=== PATIENT | female | born 1980 | race African-American/Black ===

== ENCOUNTER 2016-09-08 15:03 | Emergency (ER) | payer OTHER ==
[2016-09-08 15:12] VITALS: BP 109/79; PULSE 66; TEMP 97.7; BMI 23.5
--- NOTE | 2016-09-08 15:23 | PDOC ---
History of Present Illness - History of Present Illness Initial Comments: 09/08/16 15:49 The patient is a 36 year old female, A3, with a significant past medical history of bacterial vaginosis, who presents to the emergency department with clear malodorous discharge since late last night. She reports experiencing this vaginal discharge in the past, most recent episode in April 2016. She states she recalls not reacting well to the medication she was prescribed during her last experience. She denies vaginal itching or burning. She denies recent sexual activity. She denies abdominal pain, dysuria, frequency, urgency and hematuria. LMP: 08/31/15 (regular) She denies chest pain, shortness of breath, headache and dizziness. She denies fever, chills, nausea, vomit, diarrhea and constipation. Allergies: NKDA Past surgical history: myomectomy for fibroids Social history: Denies toxic habits <Radha Rogel - Last Filed: 09/08/16 16:00> - History of Present Illness Initial Comments: 09/08/16 16:29 09/08/16 16:29 <Joey Niño - Last Filed: 09/08/16 16:32> - General Chief Complaint: Vaginal Sxs Stated Complaint: VAGINAL DISCHARGE Time Seen by Provider: 09/08/16 15:07 Past History <Radha Rogel - Last Filed: 09/08/16 16:00> - Past Medical History Anemia: No Asthma: No Diabetes: No Disorders: Yes (vaginal discharge in July 2011) Hypercholesterolemia: Yes (NOT ON MEDS) Kidney Stones: Yes - Surgical History Abdominal Surgery: Yes (MYOMECTOMY IN 2015) - Reproductive History Cervical CA: No Dysfunctional Uterine Bleeding: No Ectopic : No Endometrial CA: No Polycystic Ovaries: No Therapeutic (s) & number: (2) Tubal Ligation: No - Immunization History Td Vaccination: No Immunization Up to Date: No - Psycho/Social/Smoking Cessation Hx Anxiety: No Suicidal Ideation: No Smoking Status: No Smoking History: Never smoked Have you smoked in the past 12 months: No Number of Cigarettes Smoked Daily: 0 Information on smoking cessation initiated: No Hx Alcohol Use: No Drug/Substance Use Hx: No Substance Use Type: None Hx Substance Use Treatment: No <Joey Niño - Last Filed: 09/08/16 16:32> - Past Medical History Allergies/Adverse Reactions: Allergies Allergy/AdvReac Type Severity Reaction Status Date / Time No Known Allergies Allergy Verified 09/08/16 15:07 Home Medications: Ambulatory Orders Metronidazole 0.75% Vag. Gel [Metrogel 0.75% *Vaginal Gel* -] 1 applic VG HS #1 tube 09/08/16 Abd/GI Specific PMHX - Complaint Specific PMHX Colitis: No Diverticulitis: No Gall Bladder Disease: No GERD: No Irritable Bowel Synd (IBS): No <Joey Niño - Last Filed: 09/08/16 16:32> Review of Systems - Review of Systems Able to Perform ROS?: Yes Comments:: 09/08/16 15:50 CONSTITUTIONAL: Absent: fever, no chills, no fatigue EYES: Absent: visual changes ENT: Absent: ear pain, no sore throat CARDIOVASCULAR: Absent: chest pain, no palpitations RESPIRATORY: Absent: cough, no SOB GI: (+) malodorous vaginal discharge. Absent: abdominal pain, no nausea, no vomiting , no constipation, no diarrhea GENITOURINARY: Absent: dysuria, no frequency, no hematuria MUSCULOSKELETAL: Absent: back pain, no arthralgia, no myalgia SKIN: Absent: rash NEURO: Absent: headache <Radha Rogel - Last Filed: 09/08/16 16:00> *Physical Exam - Vital Signs Last Vital Signs Temp Pulse Resp BP Pulse Ox 97.7 F 66 18 109/79 98 09/08/16 15:09 09/08/16 15:09 09/08/16 15:09 09/08/16 15:09 09/08/16 15:09 - Physical Exam Comments: 09/08/16 15:51 GENERAL: Well-appearing, well-nourished. No apparent distress. HEENT: Normocephalic, atraumatic. PERRL, EOM intact. CARDIOVASCULAR: Normal S1, S2. Regular rate and rhythm. PULMONARY: Clear to auscultation bilaterally. ABDOMEN: Soft, non-distended, non-tender. EXTREMITIES: Normal ROM in all four extremities. No gross deformities. SKIN: Warm, dry. No rash NEUROLOGICAL: No focal neurological deficits. <Radha Rogel - Last Filed: 09/08/16 16:00> - Vital Signs Last Vital Signs Temp Pulse Resp BP Pulse Ox 97.7 F 66 18 109/79 98 09/08/16 15:09 09/08/16 15:09 09/08/16 15:09 09/08/16 15:09 09/08/16 15:09 <Joey Niño - Last Filed: 09/08/16 16:32> Medical Decision Making - Medical Decision Making 09/08/16 15:57 Patient with recurrent clear, watery, vaginal discharge without dysuria, itching , irritation, or rash/lesions. She denies any abdominal pain, pelvic pain, back pain, nausea, vomiting, or diarrhea. She denies any sexual intercourse for 6 months. She has had bacterial vaginosis treated with Flagyl in the past. test and urinalysis were performed. Treatment for bacterial vaginosis was prescribed and referral to PUMP TECHNICIAN for further monitoring and treatment was initiated. Patient fully ambulatory and in no pain or other distress upon discharge to follow-up as directed. 09/08/16 16:29 Urinalysis and test are negative. 09/08/16 16:29 <Joey Niño - Last Filed: 09/08/16 16:32> *DC/Admit/Observation/Transfer - Attestations Scribe Attestion: 09/08/16 15:51 Documentation prepared by Radha Rogel, acting as medical receptionist assistant for Joey Quiles MD <Radha Rogel - Last Filed: 09/08/16 16:00> - Discharge Dispostion Admit: No <Joey Niño - Last Filed: 09/08/16 16:32> Diagnosis at time of Disposition: Bacterial vaginosis - Discharge Dispostion Disposition: HOME Condition at time of disposition: Stable - Prescriptions Prescriptions: Metronidazole 0.75% Vag. Gel [Metrogel 0.75% *Vaginal Gel* -] 1 applic VG HS #1 tube - Patient Instructions Printed Discharge Instructions: DI for Bacterial Vaginosis Additional Instructions: See PUMP TECHNICIAN for follow-up and further treatment if no improvement.
[2016-09-08 16:21] LABS: URINE APPEARANCE Clear; URINE BILIRUBIN Negative (NEGATIVE); URINE BLOOD Negative (NEGATIVE); URINE GLUCOSE (UA) Negative (NEGATIVE); URINE KETONE Negative (NEGATIVE); URINE LEUK ESTERASE Negative (NEGATIVE); URINE NITRITE Negative (NEGATIVE); URINE PROTEIN Negative (NEGATIVE); URINE UROBILINOGEN 0.2 E.U/dl (0.2-1.0)
[2016-09-08 16:22] LABS: URINE COLOR YELLOW
== END 2016-09-08 16:55 | disposition home or self-care (01) ==
LOC: FER 15:03
DX: N76.0 Acute vaginitis (principal); Z87.442 Personal history of urinary calculi
CPT/HCPCS: 81003; 84703; 99282-25

== ENCOUNTER 2016-11-02 22:20 | Emergency (ER) | payer OTHER ==
--- NOTE | 2016-11-02 22:25 | PDOC ---
History of Present Illness - General Stated Complaint: VAGINAL DISCHARGE Time Seen by Provider: 11/02/16 22:23 History Source: Patient Exam Limitations: No Limitations - History of Present Illness Initial Comments: 36 yo F history recurrent yeast infections presents with vaginal discharge, irritation, itching. She states that she suspected a yeast infection, but after taking monistat and diflucan, it did not improve. She states that typically it does not resolve with diflucan. She has had recurrent infections since she had a myomectomy in April of last year. Discharge is white, thick, cottage cheese -like. She has had the same sexual partner for long-term, they were both tested for STIs last month, results were all negative. Modifying Factors: improves with: movement Past History - Past Medical History Allergies/Adverse Reactions: Allergies Allergy/AdvReac Type Severity Reaction Status Date / Time No Known Allergies Allergy Verified 11/02/16 22:35 Home Medications: Ambulatory Orders Terconazole 80 mg VG HS #3 supp.vag 11/02/16 Anemia: No Asthma: No Diabetes: No Disorders: Yes (vaginal discharge in July 2011) Hypercholesterolemia: Yes (NOT ON MEDS) Kidney Stones: Yes - Surgical History Abdominal Surgery: Yes (MYOMECTOMY IN 2015) - Reproductive History Cervical CA: No Dysfunctional Uterine Bleeding: No Ectopic : No Endometrial CA: No Polycystic Ovaries: No Therapeutic (s) & number: (2) Tubal Ligation: No - Immunization History Td Vaccination: No Immunization Up to Date: No - Psycho/Social/Smoking Cessation Hx Anxiety: No Suicidal Ideation: No Smoking Status: No Smoking History: Never smoked Have you smoked in the past 12 months: No Number of Cigarettes Smoked Daily: 0 Hx Alcohol Use: No Drug/Substance Use Hx: No Substance Use Type: None Hx Substance Use Treatment: No Review of Systems - Review of Systems Able to Perform ROS?: Yes Comments:: GENERAL/CONSTITUTIONAL: No fever or chills. No weakness. HEAD, EYES, EARS, NOSE AND THROAT: No change in vision. No ear pain or discharge. No sore throat. CARDIOVASCULAR: No chest pain or shortness of breath. RESPIRATORY: No cough, wheezing, or hemoptysis. GASTROINTESTINAL: No nausea, vomiting, diarrhea or constipation. GENITOURINARY: No dysuria, frequency, or change in urination. +Vaginal discharge. MUSCULOSKELETAL: No joint or muscle swelling or pain. No neck or back pain. SKIN: No rash NEUROLOGIC: No headache, vertigo, loss of consciousness, or change in strength/ sensation. ENDOCRINE: No increased thirst. No abnormal weight change. HEMATOLOGIC/LYMPHATIC: No anemia, easy bleeding, or history of blood clots. ALLERGIC/IMMUNOLOGIC: No hives or skin allergy. *Physical Exam - Physical Exam Comments: GENERAL: Awake, alert, and fully oriented, in no acute distress HEAD: No signs of trauma EYES: PERRLA, EOMI, sclera anicteric, conjunctiva clear ENT: Auricles normal inspection, hearing grossly normal, nares patent, oropharynx clear without exudates. Moist mucosa NECK: Normal ROM, supple, no lymphadenopathy, JVD, or masses LUNGS: Breath sounds equal, clear to auscultation bilaterally. No wheezes, and no crackles HEART: Regular rate and rhythm, normal S1 and S2, no murmurs, rubs or gallops ABDOMEN: Soft, nontender, normoactive bowel sounds. No guarding, no rebound. No masses EXTREMITIES: Normal range of motion, no edema. No clubbing or cyanosis. No cords, erythema, or tenderness NEUROLOGICAL: Cranial nerves II through XII grossly intact. Normal speech, normal gait SKIN: Warm, Dry, normal turgor, no rashes or lesions noted. : No external lesions. +Moderate white cottage cheese-like discharge. No adnexal or uterine tenderness. Medical Decision Making - Medical Decision Making Pt with history of many infections in the past, and now with copious discharge despite outpatient treatment. Will treat with terconazole, as this may either be a different organism or a resistant one. F/u with rn float this week. *DC/Admit/Observation/Transfer Diagnosis at time of Disposition: Candidiasis of female genitalia - Discharge Dispostion Disposition: HOME Condition at time of disposition: Stable Admit: No - Prescriptions Prescriptions: Terconazole 80 mg VG HS #3 supp.vag - Patient Instructions Printed Discharge Instructions: DI for Vaginal Yeast Infection
[2016-11-02 22:39] VITALS: BP 110/76; PULSE 67; TEMP 98.4; BMI 24.3
[2016-11-02 22:50] LABS: PH,URINE 5.5 (4.5-8); URINE APPEARANCE Clear; URINE BILIRUBIN Negative (NEGATIVE); URINE GLUCOSE (UA) Negative (NEGATIVE); URINE KETONE Negative (NEGATIVE); URINE LEUK ESTERASE Trace (NEGATIVE); URINE NITRITE Negative (NEGATIVE); URINE PROTEIN Negative (NEGATIVE); URINE UROBILINOGEN 0.2 E.U/dl (0.2-1.0)
[2016-11-02 23:38] LABS: URINE BLOOD TRACE (NEGATIVE); URINE COLOR YELLOW
[2016-11-03 00:45] LABS: CALCIUM OXALATE CRYSTALS MODERATE /hpf (NONE SEEN); URINE BACTERIA RARE /hpf (NEGATIVE); URINE RBC 0-3 /hpf (0-3)
== END 2016-11-02 22:57 | disposition home or self-care (01) ==
LOC: FER 22:20
DX: B37.3 Candidiasis of vulva and vagina (principal); Z87.442 Personal history of urinary calculi
CPT/HCPCS: 36415; 81003; 81015; 84703; 87491; 87591; 99281-25

== ENCOUNTER 2016-11-06 16:42 | Emergency (ER) | payer OTHER ==
[2016-11-06 16:47] VITALS: BMI 24.2
[2016-11-06 16:52] VITALS: BP 103/84; PULSE 68; TEMP 99.1
--- NOTE | 2016-11-06 18:36 | PDOC ---
History of Present Illness - General History Source: Patient Exam Limitations: No Limitations - History of Present Illness Initial Comments: 11/06/16 18:39 The patient is a 36 year old female (LMP 10/26/16), with a significant past medical history of recurrent yeast infections and a myomectomy (04/2016), who presents to the emergency department with complains of yellow vaginal discharge. The patient was present in the ED on 11/02/2016 with vaginal discharge, itching and irritation. At first she believed it was a yeast infection but after taking monistat and diflucan her symptoms did not improve. The patient states that she has been getting recurrent yeast infections since her myomectomy in April 2016. Her discharge upon her last visit was white, thick, and cottage cheese like. Upon presentation to the ED today she states that it is now yellow. She was given teranozole 80 mg. She denies any STIs. The patient does report that on night she had a fever and chills. She denies chest pain, shortness of breath, headache and dizziness. She denies nausea, vomit, diarrhea and constipation. Medications: teraonozole 80mg. Allergies:None Past surgical history: Myomectomy in April 2016. Social history: Never smoked <Tg Mcdonald - Last Filed: 11/06/16 18:38> <Naeem Jackson - Last Filed: 11/06/16 19:48> - General Chief Complaint: Vaginal Sxs Stated Complaint: YELLOW VAGINAL D/C Time Seen by Provider: 11/06/16 16:57 Past History <Tg Mcdonald - Last Filed: 11/06/16 18:38> - Past Medical History Anemia: No Asthma: No Diabetes: No Disorders: Yes (vaginal discharge in July 2011) Hypercholesterolemia: Yes (NOT ON MEDS) Kidney Stones: Yes - Surgical History Abdominal Surgery: Yes (MYOMECTOMY IN 2015) - Reproductive History Cervical CA: No Dysfunctional Uterine Bleeding: No Ectopic : No Endometrial CA: No Polycystic Ovaries: No Therapeutic (s) & number: (2) Tubal Ligation: No - Immunization History Td Vaccination: No Immunization Up to Date: No - Psycho/Social/Smoking Cessation Hx Anxiety: No Suicidal Ideation: No Smoking Status: No Smoking History: Never smoked Have you smoked in the past 12 months: No Number of Cigarettes Smoked Daily: 0 Hx Alcohol Use: No Drug/Substance Use Hx: No Substance Use Type: None Hx Substance Use Treatment: No <Naeem Jackson - Last Filed: 11/06/16 19:48> - Past Medical History Allergies/Adverse Reactions: Allergies Allergy/AdvReac Type Severity Reaction Status Date / Time No Known Allergies Allergy Verified 11/02/16 22:35 Home Medications: Ambulatory Orders Miconazole Nitrate [Miconazole 7] 45 gm VG DAILY #1 cream.appl 11/06/16 Review of Systems - Review of Systems Able to Perform ROS?: Yes Comments:: 11/06/16 18:39 CONSTITUTIONAL: Absent: Fever, Chills, Diaphoresis, Generalized Weakness, Malaise, Loss of Appetite HEENT: Absent: Rhinorrhea, Nasal Congestion, Throat Pain, Throat Swelling, Difficulty Swallowing, Mouth Swelling, Ear Pain, Eye Pain, Visual Changes CARDIOVASCULAR: Absent: Chest Pain, Syncope, Palpitations, Irregular Heart Rate, Lightheadedness , Peripheral Edema MUSCULOSKELETAL: Absent: Myalgia, Arthralgia, Joint Swelling, Back pain, Neck Pain SKIN: Absent: Rash, Itching, Pallor VAGINAL: +Yellow discharge <ChinoForrest monsalveie - Last Filed: 11/06/16 18:38> *Physical Exam - Vital Signs Last Vital Signs Temp Pulse Resp BP Pulse Ox 99.1 F 68 18 103/84 100 11/06/16 16:43 11/06/16 16:43 11/06/16 16:43 11/06/16 16:43 11/06/16 16:43 - Physical Exam Comments: 11/06/16 18:39 GENERAL: The patient is awake, alert, and fully oriented, in no acute distress. HEAD: Normal with no signs of trauma. EYES: Pupils equal, round and reactive to light, extraocular movements intact, sclera anicteric, conjunctiva clear. EXTREMITIES: Normal range of motion, no edema. Sensation intact. Circulation intact. NEUROLOGICAL: Normal speech, normal gait. PSYCH: Normal mood, normal affect. SKIN: Warm, Dry, normal turgor, no rashes or lesions noted. PELVIC EXAM: External genitalia: Normal without lesions. Vagina: +She has cottage cheese discharge consistent with damon. no blood. Cervix: Long and closed with no cervical motion tenderness. Uterus: Nontender, normal in size. Adnexa: Nontender, without masses <Tg Mcdonald - Last Filed: 11/06/16 18:38> - Vital Signs Last Vital Signs Temp Pulse Resp BP Pulse Ox 99.1 F 68 18 103/84 100 11/06/16 16:43 11/06/16 16:43 11/06/16 16:43 11/06/16 16:43 11/06/16 16:43 - Physical Exam Comments: 11/06/16 19:11 Abdomen is soft and nontender. No abdominal masses. No guarding or rebound tenderness. <Naeem Jackson - Last Filed: 11/06/16 19:48> Medical Decision Making - Medical Decision Making 11/06/16 19:11 Patient with chronic vaginitis, recurrent yeast infections, has failed fluconazole once weekly for 10 weeks. Has failed other antifungal agents. Currently on exam has recurrent damon vaginitis with typical discharge. <Naeem Jackson - Last Filed: 11/06/16 19:48> *DC/Admit/Observation/Transfer - Attestations Scribe Attestion: 11/06/16 18:40 Documentation prepared by KUSHAL Louise, acting as medical surgical tech for Naeem Jackson MD. <Tg Mcdonald - Last Filed: 11/06/16 18:38> - Discharge Dispostion Admit: No <Naeem Jackson - Last Filed: 11/06/16 19:48> Diagnosis at time of Disposition: Damon vaginitis - Discharge Dispostion Condition at time of disposition: Stable - Prescriptions Prescriptions: Miconazole Nitrate [Miconazole 7] 45 gm VG DAILY #1 cream.appl - Patient Instructions Printed Discharge Instructions: DI for Vaginal Yeast Infection Additional Instructions: You were evaluated today for a vaginal yeast infection. Use miconazole intravaginal 100 mg daily for 7 days. The prescription has been sent to your pharmacy. Follow-up with your lace finisher. Given that your yeast infection has been recurrent so many times, it is recommended that you discuss with your lace finisher culture and sensitivity of the yeast infection. This may allow more targeted therapy that will be more effective. Return to the emergency department for any severe or progressive symptoms.
[2016-11-06 18:57] LABS: URINE APPEARANCE Clear; URINE BILIRUBIN Negative (NEGATIVE); URINE BLOOD Negative (NEGATIVE); URINE GLUCOSE (UA) Negative (NEGATIVE); URINE KETONE Negative (NEGATIVE); URINE LEUK ESTERASE Negative (NEGATIVE); URINE NITRITE Negative (NEGATIVE); URINE PROTEIN Negative (NEGATIVE); URINE UROBILINOGEN 0.2 E.U/dl (0.2-1.0)
[2016-11-06 19:16] LABS: URINE COLOR YELLOW
== END 2016-11-06 19:54 | disposition home or self-care (01) ==
LOC: FER 16:42
DX: B37.3 Candidiasis of vulva and vagina (principal)
CPT/HCPCS: 36415; 81003; 84703; 87086; 87491; 87591; 99283-25

== ENCOUNTER 2017-05-22 12:20 | Emergency (ER) | payer OTHER ==
[2017-05-22 12:28] VITALS: BP 106/63; PULSE 84; TEMP 98.1; BMI 23.5
--- NOTE | 2017-05-22 12:32 | PDOC ---
History of Present Illness - General Chief Complaint: Vaginal Sxs Stated Complaint: FOUL SMELLING, CLOUDY URINE, VAGINAL DISCHARGE Time Seen by Provider: 05/22/17 12:26 - History of Present Illness Initial Comments: 05/22/17 12:59 36yo female presents ambulatory from home c/o vaginal discharge, itching, and foul smelling urine. States she was treated with metrogel for BV prior to May 13. Developed her menstrual cycle on the , then developed a yeast infection for which she used monostat 3 day and took a diflucan. States april of 2016 she underwent a myomectomy with her BOARDING SPECIALIST in [place]. States since then she has had recurrent yeast infections. States in December her PROFESSOR OF FAMILY MEDICINE told her to take diflucan qsunday of every week. Pt also c/o foul smelling urine and dysuria since tuesday. No abd pain. No f/v. No n/v/d. No cp/sob. No harrell. Nontoxic in appearance. Hx of chlamydia when she was 20. Currently with 1 sexual partner in a monogomous relationship. Was tested for HIV/STDs in december and was negative. Unprotected intercourse May 03- states attempting to get , but had menses on May 13. PMhx: recurrent vulvovaginitis, BV Pshx: myomectomy Allergies: NKDA 05/22/17 13:03 Past History - Past Medical History Allergies/Adverse Reactions: Allergies Allergy/AdvReac Type Severity Reaction Status Date / Time No Known Allergies Allergy Verified 05/22/17 12:23 Home Medications: Ambulatory Orders Fluconazole [Diflucan] 150 mg PO ONCE #1 tablet 05/22/17 Anemia: No Asthma: No COPD: No Diabetes: No Disorders: Yes (vaginal discharge in July 2011) Hypercholesterolemia: Yes (NOT ON MEDS) Kidney Stones: Yes Other medical history: H/O RECURRENT URINARY, VAGINAL SX - Surgical History Abdominal Surgery: Yes (MYOMECTOMY IN 2015) - Reproductive History Cervical CA: No Dysfunctional Uterine Bleeding: No Ectopic : No Endometrial CA: No Polycystic Ovaries: No Therapeutic (s) & number: (2) Tubal Ligation: No - Immunization History Td Vaccination: No Immunization Up to Date: No - Suicide/Smoking/Psychosocial Hx Smoking Status: No Smoking History: Never smoked Have you smoked in the past 12 months: No Number of Cigarettes Smoked Daily: 0 Hx Alcohol Use: No Drug/Substance Use Hx: No Substance Use Type: None Hx Substance Use Treatment: No Review of Systems - Review of Systems Able to Perform ROS?: Yes Is the patient limited Hebrew proficient: No Constitutional: No: Chills, Fever HEENTM: No: Nose Congestion, Throat Pain Respiratory: No: Cough, Shortness of Breath, Wheezing Cardiac (ROS): No: Chest Pain, Irregular Heart Rate ABD/GI: No: Abdominal Distended, Diarrhea, Nausea, Vomiting : Yes: Burning, Dysuria, Discharge Musculoskeletal: No: Back Pain Integumentary: No: Rash Neurological: No: Headache, Numbness, Paresthesia All Other Systems: Reviewed and Negative *Physical Exam - Vital Signs Last Vital Signs Temp Pulse Resp BP Pulse Ox 98.1 F 84 187 H 106/63 99 05/22/17 12:20 05/22/17 12:20 05/22/17 12:20 05/22/17 12:20 05/22/17 12:20 - Physical Exam General Appearance: Yes: Nourished, Appropriately Dressed. No: Apparent Distress HEENT: positive: EOMI, Normal Voice Neck: positive: Supple Respiratory/Chest: positive: Lungs Clear, Normal Breath Sounds Cardiovascular: positive: Regular Rhythm, Regular Rate Female Pelvic Exam: positive: normal external exam, cervical os closed, normal adnexa, discharge, other (white thick cheesy discharge - copiuous amount ). negative: CMT, adnexal tenderness Gastrointestinal/Abdominal: positive: Flat, Soft. negative: Tender, Guarding, Rebound Musculoskeletal: positive: Normal Inspection. negative: CVA Tenderness Extremity: positive: Normal Capillary Refill, Normal Inspection, Normal Range of Motion Integumentary: positive: Normal Color, Dry, Warm Neurologic: positive: floor surfacer II-XII NML intact, Fully Oriented, Alert, Motor Strength 5/5, Other (ambulatory with a steady gait) Medical Decision Making - Medical Decision Making 05/22/17 13:05 a/p: 36yo female with vaginal discharge and dysuria -will check GC/Chlamydia -discharge consistent with yeast infection -will check UA, UCG 05/22/17 13:46 urine preg negative recent menstrual cycle will give diflucan in ED and give another dose for repeat in 72 hours. Discussed need for follow up with enrollment management director next week Discussed urine results. no signs of infection pt understands gc/chl pending No CMT or adnexal ttp discharge consistent with yeast infection *DC/Admit/Observation/Transfer Diagnosis at time of Disposition: Candidiasis of female genitalia, Vaginal discharge - Discharge Dispostion Disposition: HOME Condition at time of disposition: Stable Admit: No - Prescriptions Prescriptions: Fluconazole [Diflucan] 150 mg PO ONCE #1 tablet - Referrals Referrals: Corbin Andrews MD [Staff Physician] - - Patient Instructions Printed Discharge Instructions: DI for Vaginal Yeast Infection Additional Instructions: Please take all meds as prescribed. Please return to the ED with any further complaints. You may repeat your diflucan dose in 72 hours (on 05/25/17) if your symptoms persist. Please make an appointment to follow up with your PMD and your PROFESSOR OF FAMILY MEDICINE. Your cultures are pending and you may call medical records to obtain your results in 3-4 days. - Post Discharge Activity
[2017-05-22 13:03] LABS: PH,URINE 8.5 (4.5-8); URINE APPEARANCE Clear; URINE BILIRUBIN Negative (NEGATIVE); URINE BLOOD Negative (NEGATIVE); URINE GLUCOSE (UA) Negative (NEGATIVE); URINE KETONE Negative (NEGATIVE); URINE LEUK ESTERASE Negative (NEGATIVE); URINE NITRITE Negative (NEGATIVE); URINE PROTEIN Negative (NEGATIVE); URINE UROBILINOGEN 0.2 (0.2-1.0)
[2017-05-22 13:06] LABS: URINE COLOR YELLOW
[2017-05-22] MEDS ORDERED: FLUCONAZOLE 50 MG TABLET PO ONE (13:46)
[2017-05-22] MEDS ORDERED: FLUCONAZOLE 150 MG TABLET PO ONE (13:53)
== END 2017-05-22 14:00 | disposition home or self-care (01) ==
LOC: FER 12:20
DX: B37.89 Other sites of candidiasis (principal); N89.8 Other specified noninflammatory disorders of vagina
CPT/HCPCS: 36415; 81003; 84703; 87491; 87591; 99283-25

== ENCOUNTER 2017-05-26 13:19 | Emergency (ER) | payer OTHER ==
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
[2017-05-26 13:26] VITALS: BP 144/76; PULSE 59; TEMP 98.2; BMI 23.5
[2017-05-26] MEDS ORDERED: IBUPROFEN 400 MG TABLET (FP) PO ONE ×2 (13:49→13:57)
== END 2017-05-26 15:30 | disposition home or self-care (01) ==
LOC: FER 13:19
DX: S06.0X0A Concussion without loss of consciousness, initial encounter (principal); V43.52XA Car driver injured in collision with other type car in traffic accident, initial encounter; Y93.89 Activity, other specified; Y92.410 Unspecified street and highway as the place of occurrence of the external cause
CPT/HCPCS: 70450-TC; 84703; 99281-25

== ENCOUNTER 2017-06-29 07:51 | Emergency (ER) | payer OTHER ==
[2017-06-29 07:59] VITALS: BP 112/68; PULSE 67; TEMP 98.4; BMI 23.8
--- NOTE | 2017-06-29 08:25 | PDOC ---
History of Present Illness - General Chief Complaint: Urinary Problem Stated Complaint: BURNING ON URINATION Time Seen by Provider: 06/29/17 08:15 - History of Present Illness Initial Comments: 06/29/17 08:22 37 F with no PMH presents to ER with 4 days of burning with urination. Pt denies F/C. Denies foul smelling urine. Denies vaginal discharge or bleeding. Denies flank pain. States that this pain is similar to when she has had chlamydia in the past. She has had UTIs before as well and believes this is different. Denies abdominal pain. Denies N/V/D. Pt is sexually active with 1 male partner. Does not use protection as she is trying to get . Had chlamydia once when she was 18. Past History - Past Medical History Allergies/Adverse Reactions: Allergies Allergy/AdvReac Type Severity Reaction Status Date / Time No Known Allergies Allergy Verified 06/29/17 07:55 Home Medications: Ambulatory Orders NK [No Known Home Medication] 06/29/17 Anemia: No Asthma: No COPD: No DVT: No Diabetes: No Disorders: Yes (vaginal discharge in July 2011) Hypercholesterolemia: Yes (NOT ON MEDS) Kidney Stones: Yes - Surgical History Abdominal Surgery: Yes (MYOMECTOMY IN 2016) - Reproductive History Cervical CA: No Dysfunctional Uterine Bleeding: No Ectopic : No Endometrial CA: No Polycystic Ovaries: No Therapeutic (s) & number: (2) Tubal Ligation: No - Immunization History Td Vaccination: No Immunization Up to Date: No - Suicide/Smoking/Psychosocial Hx Smoking Status: No Smoking History: Never smoked Have you smoked in the past 12 months: No Number of Cigarettes Smoked Daily: 0 Hx Alcohol Use: No Drug/Substance Use Hx: No Substance Use Type: None Hx Substance Use Treatment: No Review of Systems - Review of Systems Comments:: 06/29/17 08:24 "GENERAL/CONSTITUTIONAL: No fever or chills. No weakness. HEAD, EYES, EARS, NOSE AND THROAT: No change in vision. No ear pain or discharge. No sore throat. CARDIOVASCULAR: No chest pain or shortness of breath. RESPIRATORY: No cough, wheezing, or hemoptysis. GASTROINTESTINAL: No nausea, vomiting, diarrhea or constipation. GENITOURINARY: +dysuria MUSCULOSKELETAL: No joint or muscle swelling or pain. No neck or back pain. SKIN: No rash NEUROLOGIC: No headache, vertigo, loss of consciousness, or change in strength/ sensation. ENDOCRINE: No increased thirst. No abnormal weight change. HEMATOLOGIC/LYMPHATIC: No anemia, easy bleeding, or history of blood clots. ALLERGIC/IMMUNOLOGIC: No hives or skin allergy. " *Physical Exam - Vital Signs Last Vital Signs Temp Pulse Resp BP Pulse Ox 98.4 F 67 18 112/68 100 06/29/17 07:54 06/29/17 07:54 06/29/17 07:54 06/29/17 07:54 06/29/17 07:54 - Physical Exam Comments: 06/29/17 08:24 "GENERAL: Awake, alert, and fully oriented, in no acute distress HEAD: No signs of trauma EYES: PERRLA, EOMI, sclera anicteric, conjunctiva clear ENT: Auricles normal inspection, hearing grossly normal, nares patent, oropharynx clear without exudates. Moist mucosa NECK: Nontender, no stepoffs, Normal ROM, supple, no lymphadenopathy, JVD, or masses LUNGS: Breath sounds equal, clear to auscultation bilaterally. No wheezes, and no crackles HEART: Regular rate and rhythm, normal S1 and S2, no murmurs, rubs or gallops ABDOMEN: Soft, nontender, normoactive bowel sounds. No guarding, no rebound. No masses EXTREMITIES: Normal range of motion, no edema. No clubbing or cyanosis. No cords, erythema, or tenderness NEUROLOGICAL: Cranial nerves II through XII intact. 5/5 strength and sensation in all extremities, Normal speech, normal gait SKIN: Warm, Dry, normal turgor, no rashes or lesions noted. : No CMT, physiologic white discharge, no foul smelling or purulent discharge , no bleeding, no lesions noted Medical Decision Making - Medical Decision Making 06/29/17 08:25 37 F with dysuria. Possible UTI. No evidence of cervicitis or PID on exam but pt reports that it feels like when she had chlamydia previously, so will tx empirically. - UA, UCx, GC/CT - Ceftriaxone + azithro 06/29/17 09:30 UA negative. Pt empirically treated for GC/CT. Pt refused HIV test. Instructed to call back in 24 hours for results, as partner may need tx. I discussed the physical exam findings, ancillary test results and final diagnoses with the patient. I answered all of the patient's questions. The patient was satisfied with the care received and felt comfortable with the discharge plan and treatment plan. The patient agrees to follow up with the primary care physician within 24-72 hours. *DC/Admit/Observation/Transfer Diagnosis at time of Disposition: STI (sexually transmitted infection) - Discharge Dispostion Disposition: HOME Condition at time of disposition: Stable - Referrals - Patient Instructions Printed Discharge Instructions: Facts About Sexually Transmitted Infections Additional Instructions: Call back in 24 hours to get the results of your STD tests. You have already received treatment for it, but if your test is positive, your partner will need to be treated as well. If you experience worsening pain, fevers, vaginal discharge, or any other concerning symptoms, return to the ER immediately. Otherwise, follow up with your primary doctor as scheduled next week. - Post Discharge Activity - Attestations Physician Attestion: 06/29/17 09:33 I, Dr. Liu Bernal MD, attest that this document has been prepared under my direction and personally reviewed by me in its entirety. I further attest, that it accurately reflects all work, treatment, procedures and medical decision -making performed by me.
[2017-06-29] MEDS ORDERED: AZITHROMYCIN 1 GM PACKET PO ONE (08:37)
[2017-06-29] MEDS ORDERED: LIDOCAINE HCL 1%, 10 MG/ML (20ML VIAL) ONE (08:40)
[2017-06-29] MEDS ORDERED: AZITHROMYCIN 1 GM PACKET ONE (08:41)
[2017-06-29] MEDS ORDERED: cefTRIAXone SODIUM 1 GM VIAL ONE (08:41)
[2017-06-29] MEDS ORDERED: LIDOCAINE HCL 1%, 10 MG/ML (50 mL VIAL) SQ ONE (08:42)
[2017-06-29 09:09] LABS: URINE APPEARANCE Clear; URINE BILIRUBIN Negative (NEGATIVE); URINE BLOOD Negative (NEGATIVE); URINE GLUCOSE (UA) Negative (NEGATIVE); URINE KETONE Negative (NEGATIVE); URINE LEUK ESTERASE Negative (NEGATIVE); URINE NITRITE Negative (NEGATIVE); URINE PROTEIN Negative (NEGATIVE); URINE UROBILINOGEN 0.2 (0.2-1.0)
[2017-06-29 09:20] LABS: HCG,QUALITATIVE URINE NEGATIVE; URINE COLOR YELLOW
== END 2017-06-29 09:40 | disposition home or self-care (01) ==
LOC: FER 07:51
DX: A63.8 Other specified predominantly sexually transmitted diseases (principal)
CPT/HCPCS: 36415; 81003; 84703; 87086; 87491; 87591; 96372; 99282-25

== ENCOUNTER 2018-05-27 21:01 | Emergency (ER) | payer SELFPAY ==
[2018-05-27 21:24] VITALS: BP 128/85; PULSE 52; TEMP 98.5; BMI 23.8
--- NOTE | 2018-05-27 21:39 | PDOC ---
History of Present Illness - General History Source: Patient Exam Limitations: No Limitations - History of Present Illness Initial Comments: 05/27/18 21:51 The patient is a 37 year old female, with a significant PMH of genital herpes who presents to the emergency department with right shoulder burning sensation and small papule on the left arm, right arm and back for the past two weeks. Two weeks ago, the patient was at physical therapy where they applied some muscle relaxing cream to her right shoulder, which she believes may be related to the burning sensation. Patient states she went to see a strapper for this, and was prescribed topical ointments which she did not use. Instead she used a steroid cream she had a home with some relief of the burning sensation. Patient has also been applying aveeno cream after her shower to alleviate the burning sensation. She has a scheduled appointment with her strapper on 05/31. The patient denies chest pain, shortness of breath, headache and dizziness. Denies fever, chills, nausea, vomit, diarrhea and constipation. Denies dysuria, frequency, urgency and hematuria. Allergies: NKA Past surgical history: None reported. Social history: No reported alcohol, drug or cigarette use. <Rayna Monzon - Last Filed: 05/27/18 21:51> <Linda Kinsey - Last Filed: 05/31/18 01:40> - General Chief Complaint: Rash Stated Complaint: RASH Time Seen by Provider: 05/27/18 21:09 Past History <Rayna Monzon - Last Filed: 05/27/18 21:51> - Past Medical History Anemia: No Asthma: No COPD: No DVT: No Diabetes: No Disorders: Yes (vaginal discharge in July 2011) Hypercholesterolemia: Yes (NOT ON MEDS) Kidney Stones: Yes - Surgical History Abdominal Surgery: Yes (MYOMECTOMY IN 2016) - Reproductive History Cervical CA: No Dysfunctional Uterine Bleeding: No Ectopic : No Endometrial CA: No Polycystic Ovaries: No Therapeutic (s) & number: (2) Tubal Ligation: No - Immunization History Td Vaccination: No Immunization Up to Date: No - Suicide/Smoking/Psychosocial Hx Smoking Status: No Smoking History: Never smoked Have you smoked in the past 12 months: No Number of Cigarettes Smoked Daily: 0 Hx Alcohol Use: No Drug/Substance Use Hx: No Substance Use Type: None Hx Substance Use Treatment: No <TioLinda - Last Filed: 05/31/18 01:40> - Past Medical History Allergies/Adverse Reactions: Allergies Allergy/AdvReac Type Severity Reaction Status Date / Time No Known Allergies Allergy Verified 06/29/17 07:55 Home Medications: Ambulatory Orders Halobetasol Prop 0.05% Tp Crm [Ultravate (Nf) -] 1 gm TP BID #1 tube 05/27/18 Valacyclovir HCl [Valtrex] 500 mg PO DAILY #20 tablet 05/27/18 Review of Systems - Review of Systems Able to Perform ROS?: Yes Comments:: 05/27/18 21:57 ADULT ROS GENERAL/CONSTITUTIONAL: No fever or chills. No weakness. HEAD, EYES, EARS, NOSE AND THROAT: No change in vision. No ear pain or discharge. No sore throat. CARDIOVASCULAR: No chest pain or shortness of breath. RESPIRATORY: No cough, wheezing, or hemoptysis. GASTROINTESTINAL: No nausea, vomiting, diarrhea or constipation. GENITOURINARY: No dysuria, frequency, or change in urination. MUSCULOSKELETAL: No joint or muscle swelling or pain. No neck or back pain. SKIN: (+) Burning sensation to the right shoulder. (+) Small papules to the right arm, left arm, and back. NEUROLOGIC: No headache, vertigo, loss of consciousness, or change in strength/ sensation. ENDOCRINE: No increased thirst. No abnormal weight change. HEMATOLOGIC/LYMPHATIC: No anemia, easy bleeding, or history of blood clots. ALLERGIC/IMMUNOLOGIC: No hives or skin allergy. <Rayna Monzon - Last Filed: 05/27/18 21:51> *Physical Exam - Vital Signs Last Vital Signs Temp Pulse Resp BP Pulse Ox 98.5 F 52 L 16 128/85 100 05/27/18 21:02 05/27/18 21:02 05/27/18 21:02 05/27/18 21:02 05/27/18 21:02 - Physical Exam Comments: 05/27/18 21:56 ADULT EXAM GENERAL: Awake, alert, and fully oriented, in no acute distress HEAD: No signs of trauma EYES: PERRLA, EOMI, sclera anicteric, conjunctiva clear ENT: Auricles normal inspection, hearing grossly normal, nares patent, oropharynx clear without exudates. Moist mucosa NECK: Normal ROM, supple, no lymphadenopathy, JVD, or masses LUNGS: Breath sounds equal, clear to auscultation bilaterally. No wheezes, and no crackles HEART: Regular rate and rhythm, normal S1 and S2, no murmurs, rubs or gallops ABDOMEN: Soft, nontender, normoactive bowel sounds. No guarding, no rebound. No masses EXTREMITIES: Normal range of motion, no edema. No clubbing or cyanosis. No cords, erythema, or tenderness NEUROLOGICAL: Cranial nerves II through XII grossly intact. Normal speech, normal gait SKIN: Warm, Dry, normal turgor (+) 3mm mildly erythematous papule on the right arm, left arm, and midline lower lumber back region <Rayna Monzon - Last Filed: 05/27/18 21:51> - Vital Signs Last Vital Signs Temp Pulse Resp BP Pulse Ox 98.5 F 52 L 16 128/85 100 05/27/18 21:02 05/27/18 21:02 05/27/18 21:02 05/27/18 21:02 05/27/18 21:02 <Linda Kinsey - Last Filed: 05/31/18 01:40> Moderate Sedation - Procedure Monitoring Vital Signs: Procedure Monitoring Vital Signs Temperature 98.5 F 05/27/18 21:02 Pulse Rate 52 L 05/27/18 21:02 Respiratory Rate 16 05/27/18 21:02 Blood Pressure 128/85 05/27/18 21:02 O2 Sat by Pulse Oximetry (%) 100 05/27/18 21:02 <Rayna Monzon - Last Filed: 05/27/18 21:51> - Procedure Monitoring Vital Signs: Procedure Monitoring Vital Signs Temperature 98.5 F 05/27/18 21:02 Pulse Rate 52 L 05/27/18 21:02 Respiratory Rate 16 05/27/18 21:02 Blood Pressure 128/85 05/27/18 21:02 O2 Sat by Pulse Oximetry (%) 100 05/27/18 21:02 <Linda Kinsey - Last Filed: 05/31/18 01:40> Progress Note - Progress Note Progress Note: Documentation has been prepared under my direction and personally reviewed by me in its entirety. I attest that this documented accurately reflects all work, treatment, procedures and medical decision making performed by me. <Linda Kinsey - Last Filed: 05/31/18 01:40> Medical Decision Making - Medical Decision Making As noted above, this 37-year-old woman presents with 2 areas of skin abnormalities: She has burning sensation in the area of her right shoulder and she is concerned about a few small papules on her forearms. Exam of the area of burning sensation on her shoulder shows no evidence of skin abnormality. The papules on her forearms appear to be insect bites but patient is concerned that they may be an outbreak of herpes simplex. Patient states that halobetasol cream has been helpful in decreasing the burning sensation on the area of her right shoulder. Prescription for this cream was sent to her pharmacy. The patient has follow-up with her strapper on 05/31/18. The patient was reassured regarding the small papules on her forearms. Since patient has history of genital herpes simplex, and she is concerned regarding the recurrence, she asked for a renewal of Valtrex that she has taken for suppression of the herpes in the past. The renewal prescription for Valtrex was provided for the patient. <Linda Kinsey - Last Filed: 05/31/18 01:40> *DC/Admit/Observation/Transfer - Attestations Scribe Attestion: 05/27/18 21:58 Documentation prepared by Rayna Monzno, acting as medical superintendent for Linda Kinsey MD. <Rayna Monzon - Last Filed: 05/27/18 21:51> <Linda Kinsey - Last Filed: 05/31/18 01:40> Diagnosis at time of Disposition: Rash - Discharge Dispostion Disposition: HOME Condition at time of disposition: Stable - Prescriptions Prescriptions: Halobetasol Prop 0.05% Tp Crm [Ultravate (Nf) -] 1 gm TP BID #1 tube Valacyclovir HCl [Valtrex] 500 mg PO DAILY #20 tablet - Patient Instructions Printed Discharge Instructions: DI for Contact Dermatitis Additional Instructions: continue aveeno to irritated areas of skin as needed Halobetasol cream ,up to twice a day, to rash as needed Follow-up with your strapper as scheduled on 05/31/18
== END 2018-05-27 22:05 | disposition home or self-care (01) ==
LOC: FER 21:01
DX: R21 Rash and other nonspecific skin eruption (principal)
CPT/HCPCS: 99281-25

== ENCOUNTER 2021-03-26 15:30 | Emergency (ER) | payer OTHER ==
[2021-03-26 15:44] VITALS: BP 122/86; PULSE 86; TEMP 98.3; BMI 25.0
[2021-03-26] MEDS ORDERED: NAPROXEN 500 MG TABLET PO ONE (15:52)
[2021-03-26] MEDS ORDERED: LIDOCAINE 5% TOPICAL PATCH TP ONE (15:52)
[2021-03-26] MEDS ORDERED: LIDOCAINE 5% TOPICAL PATCH ONE (16:13)
[2021-03-26] MEDS ORDERED: NAPROXEN 500 MG TABLET ONE (16:13)
[2021-03-26] MEDS ORDERED: LIDOCAINE PATCH REMOVAL MC SCH (22:00)
== END 2021-03-26 18:05 | disposition home or self-care (01) ==
LOC: FER 15:30
DX: R51.9 Headache, unspecified (principal); S06.0X0A Concussion without loss of consciousness, initial encounter; R55 Syncope and collapse; V44.5XXA Car driver injured in collision with heavy transport vehicle or bus in traffic accident, initial encounter
CPT/HCPCS: 70450-TC; 99284-25

== ENCOUNTER 2021-05-28 20:35 | Emergency (ER) | payer OTHER ==
[2021-05-28 20:41] VITALS: BP 106/73; PULSE 81; TEMP 98.1; BMI 27.9
[2021-05-28 21:15] LABS: HCG,QUALITATIVE URINE Negative
[2021-05-28] MEDS ORDERED: KETOROLAC TROMETHAMINE 60 MG/2 ML VIAL IM ONE (23:19)
[2021-05-28] MEDS ORDERED: KETOROLAC TROMETHAMINE 60 MG/2 ML VIAL ONE (23:22)
== END 2021-05-28 23:28 | disposition home or self-care (01) ==
LOC: FER 20:35
PROC: 3E0233Z Introduction of Anti-inflammatory into Muscle, Percutaneous Approach (ICD-10-PCS; principal; 2021-05-28)
DX: R10.2 Pelvic and perineal pain (principal)
CPT/HCPCS: 76856-TC; 81003; 84703; 99284-25

== ENCOUNTER 2023-04-14 15:34 | Emergency (ER) | payer OTHER ==
[2023-04-14 16:02] VITALS: BP 123/76; PULSE 78; RESP 18; TEMP 98.3; BMI 28.8
== END 2023-04-14 16:48 | disposition home or self-care (01) ==
LOC: FER 15:34
DX: R59.0 Localized enlarged lymph nodes (principal)
CPT/HCPCS: 36415; 87491; 87591; 99283-25

== ENCOUNTER 2023-05-05 15:45 | Emergency (ER) | payer OTHER ==
[2023-05-05] MEDS ORDERED: SODIUM CHLORIDE 0.9% 1000 ML INFUS.BAG IV ONE (16:17)
[2023-05-05 16:21] LABS: HCG,QUALITATIVE URINE Negative
[2023-05-05 16:22] VITALS: BP 120/78; PULSE 81; RESP 16; TEMP 98.4; BMI 27.7
[2023-05-05] MEDS ORDERED: KETOROLAC TROMETHAMINE 15 MG/ML VIAL IVPUSH ONE (17:28)
[2023-05-05] MEDS ORDERED: KETOROLAC TROMETHAMINE 15 MG/ML VIAL ONE (17:29)
[2023-05-05 17:33] LABS: HEMATOCRIT 40.9 % (32.4-45.2); HEMOGLOBIN 13.8 G/dL (10.7-15.3); MCHC 33.8 g/dl (32.0-36.0); MEAN CELL VOLUME 91.6 fl (80-96); MEAN PLT VOLUME 8.2 fl (7.5-11.1); PLATELET COUNT 233.5 10^3/uL (134-434); RBC 4.46 10^6/uL (3.60-5.2); RDW 14.1 % (11.6-15.6); WHITE BLOOD COUNT 7.3 10^3/uL (4.0-10.8)
[2023-05-05 17:45] LABS: PLATELET ESTIMATE ADEQUATE
[2023-05-05 18:02] LABS: ALBUMIN 4.4 g/dl (3.4-5.0); BILIRUBIN,TOTAL 0.4 mg/dl (0.2-1); CALCIUM 9.5 mg/dl (8.5-10.1); CREATININE 0.9 mg/dl (0.6-1.3); POTASSIUM 4.1 mmol/L (3.5-5.1)
== END 2023-05-05 21:17 | disposition home or self-care (01) ==
LOC: FER 15:45
PROC: 3E0333Z Introduction of Anti-inflammatory into Peripheral Vein, Percutaneous Approach (ICD-10-PCS; principal; 2023-05-05)
DX: N39.0 Urinary tract infection, site not specified (principal); R10.30 Lower abdominal pain, unspecified; D25.9 Leiomyoma of uterus, unspecified; N83.201 Unspecified ovarian cyst, right side
CPT/HCPCS: 36415; 74176-TC; 76830-TC; 80053; 81003; 84703; 85027; 87086; 99285-25